=== PATIENT | female | born 1970 | race African-American/Black ===

== ENCOUNTER 2020-08-10 09:42 | Outpatient (CLI) | payer OTHER, SELFPAY ==
--- NOTE | ~2020-08-10 | MMUS_ITS ---
EXAMINATION: MM diagnostic margie BI w jonah, US breast LT complete HISTORY: Palpable left breast mass TECHNIQUE: Additional 3-D tomosynthesis images of the breasts were performed and synthetic 2-D images were generated. CAD analysis was submitted and interpreted. High resolution left whole breast ultras ound was performed. COMPARISON: 01/06/2019 BREAST PARENCHYMAL COMPOSITION: The breasts are heterogenously dense, which may obscure small masses FINDINGS: MAMMOGRAPHIC FINDINGS: . There are benign bilateral breast calcifications. No discrete mass, architectural distortion or yumiko picious cluster of calcifications to suggest malignancy. ULTRASOUND: Left whole breast ultrasound: There are multiple simple and complicated cysts of the left breast, lar gest at 11:00, 5 cm from the nipple measuring 2.9 cm corresponding to the area of palpable concern. A t 2:00, 8 cm from the nipple, there is an oval hypoechoic mass measuring 5 mm without significant int ernal vascularity. There is slightly irregular margins. There is posterior shadowing. IMPRESSION: 1. Slightly irregular shaped hypoechoic 5 mm mass of the left breast at 2:00, 8 cm from the nipple. U ltrasound-guided biopsy recommended. BI-RADS CATEGORY 4-SUSPICIOUS ABNORMALITY RECOMMENDATION: Ultrasound-guided left breast biopsy recommended. Reviewed, dictated and finalized at location A. IMPRESSION: 1. Slightly irregular shaped hypoechoic 5 mm mass of the left breast at 2:00, 8 cm from the nipple. Ultrasound-guided biopsy recommended. BI-RADS CATEGORY 4-SUSPICIOUS ABNORMALITY RECOMMENDATION: Ultrasound-guided left breast biopsy recommended.
== END 2020-08-10 09:43 ==
PROVIDERS: Visit Provider Obstetrics & Gynecology
DX: R92.8 Other abnormal and inconclusive findings on diagnostic imaging of breast (principal)
CPT/HCPCS: 76641; 77062; 77066; G0279